=== PATIENT | female | born 1960 | race Caucasian/White ===

== ENCOUNTER → 2017-04-09 | Outpatient (CLI) | payer MEDICARE, MEDICAID ==
[~2017-04-09] MED LIST: AMOXICOT500 MG PO; GEMFIBROZIL600 M1 PO; GLYBURIDE 5MG TA5 MG PO; IRON TABLETS325 MG PO; MELOXICAM; METFORMIN1000 MG PO; PHENERGAN VC +120 ML PO
--- NOTE | 2017-04-09 14:10 | RADIOLOGY REPORT PS360 ---
ANKLE-RT-3 VIEWS HISTORY: PAIN POST FALL 2 DAYS AGO ORDERING PHYSICIAN: LUIS LAY PATIENT AGE: 57 years COMPARISON: None FINDINGS: No fracture or dislocation. No lytic or blastic change. There is normal mineralization.. The joint spaces are well-preserved. No significant degenerative/arthritic changes. No erosive changes evident. IMPRESSION: Negative, no acute finding
--- NOTE | 2017-04-09 14:11 | RADIOLOGY REPORT PS360 ---
FOOT-RT-3 VIEWS HISTORY: PAIN POST FALL 2 DAYS AGO ORDERING PHYSICIAN: LUIS LAY PATIENT AGE: 57 years COMPARISON: None FINDINGS: There is a nondisplaced oblique fracture involving the distal aspect of the fifth metatarsal. There is minimal medial angulation of the distal fracture fragment. No other significant anomalies evident. IMPRESSION: Nondisplaced fracture involving the distal aspect of the fifth metatarsal at the metaphyseal diaphyseal junction
== END ==
LOC: RAD 12:29
DX: M79.671 Pain in right foot (principal)